=== PATIENT | male | born 1980 | race Two or more races ===

== ENCOUNTER 2016-06-15 10:49 | Emergency (ER) | payer OTHER ==
[~2016-06-15] VITALS: Ht 182.9 cm; Wt 65.8 kg
[2016-06-15] MEDS ORDERED: LORazepam 2MG/ML-1ML VIAL IV ONE (12:30)
[2016-06-15] MEDS ORDERED: DIAZEPAM 5 MG/ML 2ML SYRG IV ONE (12:30)
[2016-06-15 14:07] VITALS: BP 99/54
== END 2016-06-15 15:00 | disposition home or self-care (01) ==
LOC: ER 10:54
DX: S09.90XA Unspecified injury of head, initial encounter (principal); R51 Headache; W19.XXXA Unspecified fall, initial encounter; Y93.67 Activity, basketball; Y99.8 Other external cause status; Y92.89 Other specified places as the place of occurrence of the external cause
CPT/HCPCS: 70450; 82962; 96374; 96375; 99284; J2060; J3360